=== PATIENT | female | born 1975 | race Caucasian/White ===

== ENCOUNTER 2018-08-09 13:34 | Emergency (ER) | payer SELFPAY ==
--- NOTE | 2018-08-09 13:59 | ERPHSYRPT ---
- History of Present Illness Time Seen by Provider: 08/09/18 13:57 Historian: patient Exam Limitations: no limitations Patient Subjective Stated Complaint: pt stated has had pain in urethra/ perineum. states "felt like my insides were going to fall out" yesterday lower back, right side started hurting and noticed blood in her urine. temp was 102 at home Triage Nursing Assessment: pt amb in to room with slightly slumped posture, obvious pain. c/o pain in right lower back 11/25. also stated has had pressure and pain in lower abd/urethra. blood noted in urine, sent to lab. Physician History: pt stated has had pain in urethra/perineum. states "felt like my insides were going to fall out" yesterday lower back, right side started hurting and noticed blood in her urine. temp was 102 at home Timing/Duration: yesterday Quality: aching, burning, cramping Abdominal Pain Onset Location: RLQ Pain Radiation: flank Severity of Pain-Max: moderate Severity of Pain-Current: moderate Modifying Factors: Improves With: nothing Associated Symptoms: fever/chills, other (blood in urine) Allergies/Adverse Reactions: No Known Drug Allergies Allergy (Unverified 08/09/18 13:50) Home Medications: Metformin HCl [Glucophage] 1,000 mg PO BID 08/09/18 [History] NPH, Human Insulin Isophane [Humulin N] 32 unit SQ DAILY 08/09/18 [History] Ranitidine HCl [Zantac] 150 mg PO BID 08/09/18 [History] Hx Tetanus, Diphtheria Vaccination/Date Given: Yes Hx Influenza Vaccination/Date Given: No Hx Pneumococcal Vaccination/Date Given: No Immunizations Up to Date: Yes - Review of Systems Constitutional: No Fever, No Chills Eyes: No Symptoms Ears, Nose, & Throat: No Symptoms Respiratory: No Cough, No Dyspnea Cardiac: No Chest Pain, No Edema, No Syncope Abdominal/Gastrointestinal: Abdominal Pain, No Nausea, No Vomiting, No Diarrhea Genitourinary Symptoms: Dysuria, Hematuria, Urgency, Flank Pain Musculoskeletal: No Back Pain, No Neck Pain Skin: No Rash Neurological: No Dizziness, No Focal Weakness, No Sensory Changes Psychological: No Symptoms Endocrine: No Symptoms All Other Systems: Reviewed and Negative - Past Medical History Pertinent Past Medical History: Yes Neurological History: No Pertinent History ENT History: No Pertinent History Cardiac History: No Pertinent History Respiratory History: No Pertinent History Endocrine Medical History: Diabetes Type I Musculoskeletal History: Rheumatoid Arthritis GI Medical History: No Pertinent History History: No Pertinent History Psycho-Social History: No Pertinent History Female Reproductive Disorders: No Pertinent History - Past Surgical History Past Surgical History: Yes Neuro Surgical History: No Pertinent History Cardiac: No Pertinent History Respiratory: No Pertinent History Gastrointestinal: No Pertinent History Genitourinary: No Pertinent History Musculoskeletal: No Pertinent History Female Surgical History: No Pertinent History - Social History Smoking Status: Current every day smoker Exposure to second hand smoke: No Drug Use: none Patient Lives Alone: No - Female History Hx Last Menstrual Period: ablation 2010, no period since Hx Now: No - Nursing Vital Signs Nursing Vital Signs: Initial Vital Signs Pulse Rate 99 H 08/09/18 13:36 Respiratory Rate 16 08/09/18 13:36 Blood Pressure 155/94 08/09/18 13:36 O2 Sat by Pulse Oximetry 99 08/09/18 13:36 Pain Scale Pain Intensity 5 - Physical Exam General Appearance: no apparent distress, alert Eye Exam: PERRL/EOMI, eyes nml inspection Ears, Nose, Throat Exam: normal ENT inspection, pharynx normal, moist mucous membranes Neck Exam: normal inspection, non-tender, supple, full range of motion Respiratory Exam: normal breath sounds, lungs clear, No respiratory distress Cardiovascular Exam: regular rate/rhythm, normal heart sounds Gastrointestinal/Abdomen Exam: soft, No tenderness, No mass Back Exam: normal inspection, normal range of motion, No CVA tenderness, No vertebral tenderness Extremity Exam: normal inspection, normal range of motion, pelvis stable Neurologic Exam: alert, oriented x 3, cooperative, normal mood/affect, nml cerebellar function, sensation nml, No motor deficits Skin Exam: normal color, warm, dry SpO2: 99 - Course Nursing assessment & vital signs reviewed: Yes - CT Exams Abdomen/Pelvis CT Interpretation: Tele-radiologist Report (right 3 mm UPJ stone) Ordered Tests: Active Orders 24 hr Category Date Time Status ABDOMEN AND PELVIS W/0 CONTRAS [CT] Stat Exams 08/09/18 14:09 Taken AMYLASE Stat Lab 08/09/18 14:21 Completed CBC W DIFF Stat Lab 08/09/18 14:21 Completed CMP Stat Lab 08/09/18 14:21 Completed CULTURE,URINE Stat Lab 08/09/18 14:21 Received LIPASE Stat Lab 08/09/18 14:21 Completed Lactic Acid Stat Lab 08/09/18 13:56 Completed UA W/RFX UR CULTURE Stat Lab 08/09/18 14:21 Completed Medication Summary Discontinued Medications Generic Name Dose Route Start Last Admin Trade Name Otisq PRN Reason Stop Dose Admin Sodium Chloride 1,000 mls @ 999 mls/hr 08/09/18 13:56 08/09/18 15:21 Sodium Chloride 0.9% 1000 Ml IV 08/09/18 14:56 Infused .Q1H1M STA Infusion Sodium Chloride Confirm 08/09/18 14:01 Sodium Chloride 0.9% 1000 Ml Administered 08/09/18 14:02 Dose 1,000 mls @ ud .ROUTE .STK-MED ONE Ceftriaxone Sodium/Dextrose 1 g in 50 mls @ 100 mls/hr 08/09/18 14:57 15:21 Rocephin 1 Gm-D5w 50 Ml Bag IV 08/09/18 15:26 Infused STAT STA Infusion Ceftriaxone Sodium/Dextrose Confirm 08/09/18 15:02 Rocephin 1 Gm-D5w 50 Ml Bag Administered 08/09/18 15:03 Dose 1 g in 50 mls @ ud IV .STK-MED ONE Ketorolac Tromethamine 30 mg 08/09/18 13:56 08/09/18 14:13 Toradol 30 Mg Injection IV 08/09/18 13:57 30 mg STAT ONE Administration Ketorolac Tromethamine Confirm 08/09/18 14:01 Toradol 30 Mg Injection Administered 08/09/18 14:02 Dose 30 mg .ROUTE .STK-MED ONE Orphenadrine Citrate 60 mg 08/09/18 15:12 08/09/18 15:20 Norflex 60 Mg/2 Ml IV 08/09/18 15:13 60 mg STAT ONE Administration Orphenadrine Citrate Confirm 08/09/18 15:16 Norflex 60 Mg/2 Ml Administered 08/09/18 15:17 Dose 60 mg .ROUTE .STK-MED ONE Lab/Rad Data: Laboratory Result Diagrams 08/09/18 14:21 08/09/18 14:21 Laboratory Results 08/09/18 08/09/18 08/09/18 Range/Units 14:21 14:21 14:21 WBC 9.8 (4.0-10.5) K/mm3 RBC 4.56 (4.1-5.4) M/mm3 Hgb 14.2 (12.0-16.0) gm/dl Hct 42.3 (35-47) % MCV 92.8 (78-100) fl MCH 31.1 (26-32) pg MCHC 33.6 (32-36) g/dl RDW 13.4 (11.5-14.0) % Plt Count 407 (150-450) K/mm3 MPV 9.2 (6-9.5) fl Gran % 53.4 (36.0-66.0) % Eos # (Auto) 0.07 (0-0.5) Absolute Lymphs (auto) 3.97 (1.0-4.6) Absolute Monos (auto) 0.51 (0.0-1.3) Lymphocytes % 40.5 (24.0-44.0) % Monocytes % 5.2 (0.0-12.0) % Eosinophils % 0.7 (0.00-5.0) % Basophils % 0.2 (0.0-0.4) % Absolute Granulocytes 5.24 (1.4-6.9) Basophils # 0.02 (0-0.4) Sodium 138 (137-145) mmol/L Potassium 4.1 (3.5-5.1) mmol/L Chloride 102 (98-107) mmol/L Carbon Dioxide 25 (22-30) mmol/L Anion Gap 14.4 (5-15) MEQ/L BUN 11 (7-17) mg/dL Creatinine 0.39 L (0.52-1.04) mg/dL Estimated GFR > 60.0 ML/MIN Glucose 284 H (74-106) mg/dL Lactic Acid (0.4-2.0) Calcium 9.1 (8.4-10.2) mg/dL Total Bilirubin 0.60 (0.2-1.3) mg/dL AST 15 (14-36) U/L ALT 20 (0-35) U/L Alkaline Phosphatase 87 (38-126) U/L Serum Total Protein 7.4 (6.3-8.2) g/dL Albumin 4.3 (3.5-5.0) g/dL Amylase 53 (30-110) U/L Lipase 22 L (23-300) U/L Urine Color RED (YELLOW) Urine Appearance CLOUDY (CLEAR) Urine pH 6.0 (5-6) Ur Specific [place] 1.018 (1.005-1.025) Urine Protein 100 (Negative) Urine Ketones TRACE (NEGATIVE) Urine Blood LARGE (0-5) Brian/ul Urine Nitrite NEGATIVE (NEGATIVE) Urine Bilirubin NEGATIVE (NEGATIVE) Urine Urobilinogen NEGATIVE (0-1) mg/dL Ur Leukocyte Esterase NEGATIVE (NEGATIVE) Urine WBC (Auto) 16-25 (0-5) /HPF Urine RBC (Auto) >101 (0-2) /HPF U Epithel Cells (Auto) RARE (FEW) /HPF Urine Bacteria (Auto) FEW (NEGATIVE) /HPF Urine Mucus (Auto) SLIGHT (NEGATIVE) /HPF Urine Culture Reflexed YES (NO) Urine Glucose >=500 (NEGATIVE) mg/dL 08/09/18 Range/Units 13:56 WBC (4.0-10.5) K/mm3 RBC (4.1-5.4) M/mm3 Hgb (12.0-16.0) gm/dl Hct (35-47) % MCV (78-100) fl MCH (26-32) pg MCHC (32-36) g/dl RDW (11.5-14.0) % Plt Count (150-450) K/mm3 MPV (6-9.5) fl Gran % (36.0-66.0) % Eos # (Auto) (0-0.5) Absolute Lymphs (auto) (1.0-4.6) Absolute Monos (auto) (0.0-1.3) Lymphocytes % (24.0-44.0) % Monocytes % (0.0-12.0) % Eosinophils % (0.00-5.0) % Basophils % (0.0-0.4) % Absolute Granulocytes (1.4-6.9) Basophils # (0-0.4) Sodium (137-145) mmol/L Potassium (3.5-5.1) mmol/L Chloride (98-107) mmol/L Carbon Dioxide (22-30) mmol/L Anion Gap (5-15) MEQ/L BUN (7-17) mg/dL Creatinine (0.52-1.04) mg/dL Estimated GFR ML/MIN Glucose (74-106) mg/dL Lactic Acid 1.6 (0.4-2.0) Calcium (8.4-10.2) mg/dL Total Bilirubin (0.2-1.3) mg/dL AST (14-36) U/L ALT (0-35) U/L Alkaline Phosphatase (38-126) U/L Serum Total Protein (6.3-8.2) g/dL Albumin (3.5-5.0) g/dL Amylase (30-110) U/L Lipase (23-300) U/L Urine Color (YELLOW) Urine Appearance (CLEAR) Urine pH (5-6) Ur Specific [place] (1.005-1.025) Urine Protein (Negative) Urine Ketones (NEGATIVE) Urine Blood (0-5) Brian/ul Urine Nitrite (NEGATIVE) Urine Bilirubin (NEGATIVE) Urine Urobilinogen (0-1) mg/dL Ur Leukocyte Esterase (NEGATIVE) Urine WBC (Auto) (0-5) /HPF Urine RBC (Auto) (0-2) /HPF U Epithel Cells (Auto) (FEW) /HPF Urine Bacteria (Auto) (NEGATIVE) /HPF Urine Mucus (Auto) (NEGATIVE) /HPF Urine Culture Reflexed (NO) Urine Glucose (NEGATIVE) mg/dL - Progress Progress: improved, pain not gone completely Counseled pt/family regarding: lab results, diagnosis, need for follow-up, rad results - Departure Departure Disposition: Home Clinical Impression: Renal colic on right side Hematuria Qualifiers: Hematuria type: gross Qualified Code(s): R31.0 - Gross hematuria Condition: Stable Critical Care Time: Yes Critical Care Time(excluding separately billable procedures): 30-74 minutes Referrals: MELISSA ADHIKARI DO [Primary Care Provider] - Instructions: Blood in the Urine (Hematuria) in Adults, Renal Colic (DC) Additional Instructions: GABIJOSE A GROVER was seen on 08/09/18 n the Emergency Room. At that time you were treated for an emergent condition, during your visit Laboratory, Radiology and/or other procedures may have been ordered. It is very important that you follow-up with your Primary Care Physician MELISSA ADHIKARI within the next 24-48 hours to review your Emergency Room visit and the final results of testing that was ordered. Some test results such as Urine Cultures, Blood Cultures, and other cultures if ordered will not be finalized for 24-48 hours. If you do not have a Primary Care Provider please call the medical records department at [phone] to obtain a copy of your results or you may sign into our patient portal to obtain these results by visiting us @ [email or web address] and completing the following steps: 1. Click on the Patient Portal link 2. Click the Patient Self Enrollment Link to complete the enrollment form and entering your 3. Once the enrollment form is completed you will receive an email with a temporary ID and password at the email address you provided. 4. Next choose a user name and password. Your user name must be at least 4 characters long and your password must be at least 4 characters long. 5. Choose a security question from the list and provide your answer to the question. If you already have signed into the Health Portal you may access your Health Care Information 08/10 by the following steps: 1. Login to our website @ [email or web address] 2. Enter your original user name and password. FAQS The [facility] Health Portal is an online tool that contains your Lab Results, Radiology Reports, Visit History, Discharge Instructions and Health Summary Lab and Radiology Results will not be available for 72 hours on the portal. The Portal is a secure site, passwords are encryted and URLs are re-written so they cannot be copied and pasted. You and authorized family members are the only ones who can access your Portal. Also there is a timeout feature that protects your information if you leave the Portal page open. If you have technical difficulty please use the Contact Us link on the page this will allow you to submit any questions you have regarding the Portal or you may contact the Medical Record Department at [phone]. Discharge/Care Plan GABIJOSE A GROVER was seen on 08/09/18 in the Emergency Room. The patient was counseled regarding Diagnosis,Lab results, Imaging studies, need for follow up and when to return to the Emergency Room. Prescriptions given: Discharge Note I have spoken with the patient and/or caregivers. I have explained the patient' s condition, diagnosis and treatment plan based on the information available to me at this time. I have answered the patient's and/or caregiver's questions and addressed any concerns. The patient and/or caregivers have as good understanding of the patient's diagnosis, condition and treatment plan as can be expected at this point. The vital signs have been stable. The patient's condition is stable and appropriate for discharge from the emergency department. The patient will pursue further outpatient evaluation with the primary care physician or other designated or consulting physician as outlined in the discharge instructions. The patient and/or caregivers are agreeable to this plan of care and follow-up instructions have been explained in detail. The patient and/or caregivers have received these instruction. The patient/and or caregivers are aware that any significant change in condition or worsening of symptoms should prompt an immediate return to this or the closest emergency department or call 911. Prescriptions: Ciprofloxacin [Cipro 500 MG] 500 mg PO BIDAC #20 tablet Cyclobenzaprine HCl 10 mg [Flexeril 10 MG] 10 mg PO TID #30 tablet Naproxen 500 mg [Naprosyn 500 MG] 500 mg PO BIDAC #30 tablet
[2018-08-09] MEDS ORDERED: TORAdol 30 mg Injection ONE (14:01)
[2018-08-09] MEDS ORDERED: Sodium Chloride 0.9% 1000 ML 1,000 ML ONE (14:01)
[2018-08-09] MEDS: TORAdol 30 mg Injection IV ONE (14:13)
[2018-08-09] MEDS: Sodium Chloride 0.9% 1000 ML 1,000 ML IV STA (14:14)
[2018-08-09 14:25] LABS: BASOPHIL % 0.2 % (0.0-0.4); Basophil (Absolute #) 0.02 (0-0.4); Eosinophil % 0.7 % (0.00-5.0); Eosinophil (Absolute #) 0.07 (0-0.5); Granulocyte Absolute (ANC) 5.24 (1.4-6.9); Granulocytes % 53.4 % (36.0-66.0); Hematocrit 42.3 % (35-47); Hemoglobin 14.2 gm/dl (12.0-16.0); Lymphocyte (Absolute #) 3.97 (1.0-4.6); Lymphocytes % 40.5 % (24.0-44.0); Mean Cell Volume 92.8 fl (78-100); Mean Corpuscular Hemoglobin 31.1 pg (26-32); Mean Corpuscular Hgb Concent. 33.6 g/dl (32-36); Mean Platelet Volume 9.2 fl (6-9.5); Monocyte (Absolute #) 0.51 (0.0-1.3); Monocytes % 5.2 % (0.0-12.0); Platelet Count 407 K/mm3 (150-450); Red Blood Count 4.56 M/mm3 (4.1-5.4); Red Cell Distribution Width 13.4 % (11.5-14.0); White Blood Count 9.8 K/mm3 (4.0-10.5)
[2018-08-09 14:35] LABS: ALBUMIN 4.3 g/dL (3.5-5.0); ALKALINE PHOSPHATASE 87 U/L (38-126); AMYLASE 53 U/L (30-110); ANION GAP 14.4 MEQ/L (5-15); BLOOD UREA NITROGEN 11 mg/dL (7-17); CHLORIDE 102 mmol/L (98-107); Calcium 9.1 mg/dL (8.4-10.2); Carbon Dioxide 25 mmol/L (22-30); Creatinine 1 0.39 mg/dL (0.52-1.04); Glucose 284 mg/dL (74-106); LIPASE 22 U/L (23-300); Potassium 4.1 mmol/L (3.5-5.1); SGOT/AST 15 U/L (14-36); SGPT/ALT 20 U/L (0-35); SODIUM 138 mmol/L (137-145); Total Protein 7.4 g/dL (6.3-8.2)
[2018-08-09 14:41] VITALS: PULSE 84
[2018-08-09 14:42] LABS: Appearance CLOUDY (CLEAR); Bacteria FEW /HPF (NEGATIVE); Bilirubin NEGATIVE (NEGATIVE); Blood LARGE Ery/ul (0-5); Epithelial Cells RARE /HPF (FEW); Glucose >=500 mg/dL (NEGATIVE); Ketones TRACE (NEGATIVE); Leukocyte Esterase NEGATIVE (NEGATIVE); Mucus SLIGHT /HPF (NEGATIVE); Nitrite NEGATIVE (NEGATIVE); Protein,Urine Dip 100 (Negative); Specific Gravity 1.018 (1.005-1.025); Urobilinogen NEGATIVE mg/dL (0-1)
[2018-08-09 14:43] LABS: RBC >101 /HPF (0-2)
[2018-08-09] MEDS ORDERED: ROCEPHIN 1 Gm-D5w 50 ml Bag** 1 G/50 ML IVPB IV ONE (15:02)
[2018-08-09] MEDS: ROCEPHIN 1 Gm-D5w 50 ml Bag** 1 G/50 ML IVPB IV STA (15:03)
[2018-08-09 15:14] VITALS: O2SAT 99
[2018-08-09] MEDS ORDERED: Norflex 60 MG/2 ML ONE (15:16)
[2018-08-09] MEDS: Norflex 60 MG/2 ML IV ONE (15:20)
[2018-08-09 15:37] VITALS: BP 126/75
--- NOTE | 2018-08-09 20:50 | XRAY ---
Indication: Right lower quadrant/right flank pain. Hematuria. Multiple contiguous axial images obtained through the abdomen and pelvis without contrast as ordered. Comparison: None Lung bases are clear. Heart is not enlarged. Noncontrasted stomach and bowel loops appear nonobstructed. Normal appendix. Mild diffuse scattered colonic fecal debris throughout including rectum. No free fluid/air. 2-3 mm right UPJ calculus without hydronephrosis or perinephric fluid. Additional bilateral renal micro-calculus. Fatty liver with patchy areas of focal fatty sparing. Remaining gallbladder, pancreas, spleen, adrenal glands, kidneys, ureters, bladder, and uterus appear unremarkable for noncontrast exam. Mild aortoiliac calcifications without AAA. Osseous structures intact with minimal degenerative changes throughout the spine. Impression: 1. 2-3 mm right UPJ calculus without significant obstructive uropathy. Additional bilateral renal micro-calculus. 2. Fecal stasis without obstruction. 3. Fatty liver. Comment: Preliminary interpretation was made by [facility]. No critical discrepancy. CTDI 16.03
== END 2018-08-09 15:43 | disposition home or self-care (01) ==
LOC: ED 13:34
DX: N23 Unspecified renal colic (principal); R31.0 Gross hematuria
CPT/HCPCS: 36415; 74176; 80053; 81001; 82150; 83605; 83690; 85025; 87086; 96360; 96365; 96374; 96375; 99284; J0696; J1885; J2360